=== PATIENT | male | born 1945 | race Caucasian/White ===

== ENCOUNTER 2016-09-11 05:54 | Inpatient (IN) | payer MEDICARE, OTHER ==
--- NOTE | ~2016-09-11 | OR ---
Unit #: [id number] #: [id number] Patient: ANTELMO SAINZ [id number] [address] [address] [id number] I MR#: [id number] NAME: ANTELMO SAINZ ROOM: [facility] Date of Procedure: 09/11/2016 Admission Date: 09/11/2016 Surgeon: Jamil Moon M.D. : 1945 Attending Physician: Jamil Moon M.D. Primary Care Physician: Alicia Farnsworth M.D. 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 PROCEDURES PERFORMED 1. Right total shoulder arthroplasty with posterior augmented glenoid component. 2. Right shoulder biceps tenodesis. IMPLANTS 1. [employer] Simpliciti humeral component, size 2 nucleus with a 48 x 15 head. 2. [employer] Perform+ posterior augmented glenoid, large, 15-degree augment. TALENT SCOUT Demetria Greenwood APRN, CONCRETE GRINDER OPERATOR; OBSERVER Vannesa Edgar APRN. ANESTHESIA General with interscalene nerve block. ESTIMATED BLOOD LOSS 150 mL. DRAINS Medium Hemovac x1. SPECIMENS Humeral head to pathology. INDICATIONS FOR PROCEDURE Mr. Sainz is a 71-year-old gentleman with a longstanding history of right shoulder glenohumeral joint osteoarthritis. We have discussed operative intervention with a total shoulder versus reverse shoulder arthroplasty. The risks, benefits, and alternatives have been outlined and he elects to proceed. Unit #: [id number] #: [id number] Patient: ANTELMO SAINZ DESCRIPTION OF PROCEDURE The patient was identified in the preoperative holding area. The operative site was marked. Preoperative antibiotics were administered. A regional block was performed. The patient was brought to the operating room and placed supine on the operating table. A general anesthetic was induced. The patient was then positioned in the beach-chair position. The right upper extremity was prepped and draped in sterile fashion. A deltopectoral approach was performed. The cephalic vein was taken medially with the pectoralis major muscle. The subdeltoid space was developed. The rotator cuff including supra and infraspinatus tendons as well as subscapularis was intact. The biceps tendon sheath was opened. The biceps was pathologic appearing. An incision was made to proceed with a biceps tenodesis. A #2 FiberWire was used to tenodese the biceps to the superior border of the pectoralis major tendon using a locking Krackow suture. The biceps sheath was then opened all the way up into the rotator interval. The biceps was then incised proximal to the tenodesis and the proximal portion removed. A lesser tuberosity osteotomy was then performed of the subscapularis. The shoulder was then externally rotated and the remaining capsular attachments released. The shoulder was then dislocated anteriorly. A curved osteotome was used to remove osteophytes around the humeral head. There was full-thickness cartilage loss and pitting of the humeral head. The extramedullary cutting guide was then attached. Anatomic head cut was performed at approximately 30 degrees of retroversion. The humerus was then dislocated posteriorly and attention turned to glenoid exposure. A circumferential capsular labral release was performed. We released along the medial or inferior glenoid neck to allow sufficient posterior excursion with access to the glenoid. The axillary nerve was identified by digital palpation in the tug test. This was protected throughout the release. Once we had adequate exposure of the glenoid, this was inspected. This had the classic B2 type pattern with visible tide fermin line where the humeral head was articulating posteriorly. The patient's specific guide was utilized in placing our pin. The Paleo-glenoid was reamed. The posterior reamer was then used according to the standard technique to ream the posterior aspect of the glenoid with a 15-degree reamer. We reamed this to the desired depth and then trialed. We adjusted the reaming as needed to ensure the trial set flush length. Once we had this in the desired location, we then drilled our 3 peripheral peg holes followed by the central peg hole. The glenoid was then prepared for cementing. The real component was opened. The 3 peripheral peg holes were cemented. Bone graft was placed around the flutes of the component which was impacted in place. This achieved a good anatomic fit. This was held in place while the cement was allowed to cure. The humerus was then delivered back into the operative field. We sized to a size 2 nucleus. This was then reamed and punched. We trialed off the trial components, selecting a 48 x 15 mm component. The trials were removed. Four bone tunnels were drilled in the bicipital groove and 4 FiberTape sutures passed for subscap repair. The 3 of the sutures were incorporated through the nucleus implant. The real implant was then impacted in place and the real head assembled. The shoulder was then reduced. This had good 50% posterior pushback and was centered on the glenoid with the arm in neutral rotation. The subscapularis was then repaired with 4 FiberTape sutures as well as a #2 FiberWire in the rotator interval. The wound was irrigated. Unit #: [id number] #: [id number] Patient: ANTELMO SAINZ Drain was placed in the subdeltoid space. The deltopectoral interval was closed with 0 Vicryl followed by 2-0 Vicryl in the subcutaneous tissues and a running Monocryl in the skin. Steri-Strips and sterile dressings were applied. DISPOSITION Stable to the recovery room. Dictated by... Saw Mosley/minor TD: 09/12/2016 00:03 JOB #: [id number] OPERATIVE REPORT X Jamil Moon MD X PROCEDURE OPERATIVE NOTE
--- NOTE | ~2016-09-11 | DS ---
Unit #: [id number] #: [id number] Patient: ANTELMO SAINZ [id number] [address] [place], [place] [address] [id number] MR#: [id number] NAME: ANTELMO SAINZ ROOM: 466 Age: 71 Sex: M Admission Date: 09/11/2016 : 1945 Discharge Date: 09/13/2016 Attending Physician: Jamil Moon M.D. Primary Care Physician: Alicia Farnsworth M.D. DISCHARGE SUMMARY ADMITTING DIAGNOSIS Right glenohumeral joint arthritis. DISCHARGE DIAGNOSIS Right glenohumeral joint arthritis, status post right total shoulder arthroplasty. SECONDARY DIAGNOSIS Include iron deficiency. PROCEDURES On 09/11/2016, the patient underwent a right total shoulder arthroplasty. Please see operative report for further details. BRIEF HISTORY Mr. Sainz is a patient well known to us, whom we have been treating conservatively for right glenohumeral joint arthritis. He has since failed to get any lasting relief from conservative therapies and presented to us requesting to discuss surgical options. We recommended a right total shoulder arthroplasty. The risks, benefits, and alternatives were discussed with the patient and the patient elected to proceed with surgery on 09/13/2016. HOSPITAL COURSE On the day of surgery, the patient was transferred to the orthopedic unit. He remained stable overnight. Took postop x-ray of the right shoulder showed that he was status post right total shoulder arthroplasty. Hardware remain in correct anatomical alignment, no evidence of loosening or migration. On postop #1, the patient's vital signs remained stable. He was awake, alert, and oriented x3, in no acute distress. The patient did have a significant amount of right shoulder pain once the block wore off. His incision was intact, but there was small amount of serosanguineous drainage coming from the incision site. The Hemovac has 40 mL of serosanguineous output overnight. It was felt that the Hemovac likely clotted off overnight. The Hemovac was discontinued in the room. There was no surrounding erythema, warmth, or hematoma around the incision site. He neurovascularly was intact in the median, ulnar, and radial nerves. He had normal sensation and light touch in all 5 digits. His hemoglobin was 10.4 and white blood cell count was 10.2. The patient worked with physical therapy two times and felt comfortable for performing the Unit #: [id number] #: [id number] Patient: ANTELMO SAINZ assigned exercises. He was placed on SCDs and on aspirin for DVT prophylaxis. He remained non-weightbearing of the right upper extremity in a sling. On postop #2, the patient's pain was well controlled. His vital signs remained stable. He is awake, alert, and oriented x3, in no acute distress. His incision was clean, dry, and intact with no surrounding swelling, warmth, or erythema. He was neurovascularly intact in the median, ulnar, and radial nerves. He had normal sensation and light touch in all 5 digits. His hemoglobin was 10.7 and white blood cell count was 12.2. The patient was not complaining of any fevers, chills, cough, or shortness of breath. He was encouraged to continue to assist his incentive spirometer. He remained on SCDs and on aspirin for DVT prophylaxis. His dressing was changed at the bedside today. He remained non-weightbearing of the right upper extremity in a sling. We will plan for discharge home later today. CONDITION AT DISCHARGE Stable. DISPOSITION The patient will be discharged home, where he has family to help with postoperative care. DISCHARGE MEDICATIONS Include ferrous gluconate 65 mg p.o. daily, glucosamine and chondroitin one capsule daily, CoQ10 50 mg daily, multivitamin one tab p.o. b.i.d., aspirin 81 mg p.o. daily, calcium with vitamin D3 tablet one tab p.o. daily, folic acid 400 mcg p.o. daily, vitamin B one tab p.o. daily, domperidone 10 mg p.o. b.i.d., Percocet 5-325 mg 1 to 2 tablets q.4 hours p.r.n., dispense #65. DISCHARGE INSTRUCTIONS AND FOLLOWUP The patient will be discharged home today. He will follow up with me in the office in 2 week's time. He will remain non-weightbearing of the right upper extremity in a sling. He may remove his sling 2 to 3 times per day to perform pendulum and range of motion of the elbow, wrist, and hand. He will perform daily dressing changes to his right upper extremity incision. He is to not get his incision wet. He may shower, but he must keep an occlusive dressing over the incision site. Dictated by... Clif Miller APRN for Saw Mosley/minor TD: 09/15/2016 17:19 JOB #: [id number] Unit #: [id number] #: [id number] Patient: ANTELMO SAINZ DISCHARGE SUMMARY X CLIF MILLER APRN X DISCHARGE SUMMARY
--- NOTE | ~2016-09-11 | CR230 ---
[facility] A Service of [facility] RADIOLOGY TEXT RESULTS PATIENT: ANTELMO FIELD LOCATION: C4B 448-01 : 43 UNIT #: [id number] AGE: [address]: Jamil Moon MD SEX: M ORDER DR: [id number] [facility] [address] [place], [place] [address] [id number] MR#: [id number] Acc #: [id number] NAME: ANTELMO FIELD : 1945 SEX: M STUDY DATE/TIME: 09/11/2016 12:29 UNIT: B ROOM: [facility] STUDY DESCRIPTION: CR Shoulder Min 2 View Rt Attending Physician: Jamil Moon M.D. Ordering Physician: Jamil Moon M.D. Primary Care Physician: Alicia Farnsworth M.D. MEDICAL IMAGING REPORT This report is preliminary unless electronic signature is present EXAM Postop right shoulder series 09/11/2016. HISTORY Postop shoulder arthroplasty. TECHNIQUE 2-view right shoulder series was obtained portably following surgery. FINDINGS Shoulder arthroplasty components appear well positioned following surgery. No visible fracture or dislocation. Extensive soft tissue air in the right upper arm related to surgery. Soft tissue drain in place. IMPRESSION Satisfactory postoperative appearance following right shoulder arthroplasty. Dictated by... Antelmo Chavez M.D. THIS IS AN ELECTRONICALLY VERIFIED REPORT Antelmo Chavez M.D. at 09/11/2016 4:01 PM JUAN FRANCISCO/melissa TD: 09/11/2016 14:20 JOB #: [id number] MEDICAL IMAGING REPORT COPY
[~2016-09-11 05:54] MED LIST: ASPIRIN81 M2 PO; BALANCED B-1001 TA1 PO; CALCIUM + D 6001 TA1 PO; CELECOXIB200 MG PO; CO Q-1050 MG PO; DOMPERIDONE PO; FOLIC ACID PO; GLUCOSAMINE & C1 CAP PO; IRON1 TAB PO; [UNRECOGNIZED DRUG - OTHER] PO
[2016-09-11 06:44] LABS: BASOPHIL# 0.1 X10e3 (0-0.3); BASOPHIL% 1.4 % (0-2.5); EOSINOPHIL# 0.2 X10e3 (0-0.7); EOSINOPHIL% 4.1 % (0.0-7.0); HEMATOCRIT 35.7 % (38.0-50.0); HEMOGLOBIN 12.1 gm/dL (13.0-16.0); LYMPHOCYTE# 1.4 X10e3 (1.0-3.5); MEAN CELL VOLUME 90.5 FL (83-96); MEAN CORPUSCULAR HEMOGLOBIN 30.8 PG (28-34); MEAN PLATELET VOLUME 9.2 FL (6.5-11.5); MONOCYTE# 0.7 X10e3 (0-1.0); MONOCYTE% 13.5 % (3.0-12.0); PLATELET COUNT 205 X10e3 (140-420); RED BLOOD COUNT 3.94 X10e (3.90-5.60); RED CELL DISTRIBUTION WIDTH 13.7 % (11.0-15.5); WHITE BLOOD COUNT 5.5 X10e3 (4.0-10.5)
[2016-09-11 06:48] LABS: DIFF IND NO
[2016-09-11 07:19] LABS: BLOOD UREA NITROGEN 21 mg/dL (9-23); CALCIUM SERUM 9.2 mg/dL (8.4-10.2); CARBON DIOXIDE 28 mmol/L (22-31); CHLORIDE 105 mmol/L (100-111); GLOM FILT RATE Estimated ABOVE60 mL/min (>60); GLUCOSE FASTING 135 mg/dL (70-110); POTASSIUM 3.8 mmol/L (3.5-5.1); SODIUM 139 mmol/L (135-145)
[2016-09-12 02:55] LABS: HEMATOCRIT 30.9 % (38.0-50.0); HEMOGLOBIN 10.4 gm/dL (13.0-16.0); MEAN CELL VOLUME 91.9 FL (83-96); MEAN CORPUSCULAR HGB CONC 33.7 g/dL (30-36); MEAN PLATELET VOLUME 9.4 FL (6.5-11.5); RED BLOOD COUNT 3.36 X10e (3.90-5.60); RED CELL DISTRIBUTION WIDTH 13.5 % (11.0-15.5)
[2016-09-12 02:59] LABS: WHITE BLOOD COUNT 10.2 X10e3 (4.0-10.5)
[2016-09-13 03:37] LABS: BASOPHIL% 0.3 % (0-2.5); EOSINOPHIL% 0.2 % (0.0-7.0); HEMATOCRIT 32.2 % (38.0-50.0); HEMOGLOBIN 10.7 gm/dL (13.0-16.0); LYMPHOCYTE# 0.8 X10e3 (1.0-3.5); LYMPHOCYTE% 6.9 % (17.0-45.0); MEAN CELL VOLUME 91.7 FL (83-96); MEAN CORPUSCULAR HEMOGLOBIN 30.4 PG (28-34); MEAN CORPUSCULAR HGB CONC 33.2 g/dL (30-36); MEAN PLATELET VOLUME 9.6 FL (6.5-11.5); MONOCYTE# 1.5 X10e3 (0-1.0); NEUTROPHIL# 9.8 X10e3 (1.5-7.1); NEUTROPHIL% 80.6 % (40-75); PLATELET COUNT 163 X10e3 (140-420); RED BLOOD COUNT 3.52 X10e (3.90-5.60); RED CELL DISTRIBUTION WIDTH 13.4 % (11.0-15.5); WHITE BLOOD COUNT 12.2 X10e3 (4.0-10.5)
[2016-09-13 03:39] LABS: DIFF IND NO
[2016-09-13] MEDS ORDERED: PERCOCET5/325 PO (10:49)
== END 2016-09-13 18:11 | disposition home or self-care (01) | DRG 483 ==
LOC: CSUR 05:54 → CPACUOF 07:00 → C4B 13:38 → C4C 09-13 12:46
PROVIDERS: Orthopaedic Surgery
PROC: 0LS30ZZ Reposition Right Upper Arm Tendon, Open Approach (ICD-10-PCS; 2016-09-11)
PROC: 0RRJ0JZ Replacement of Right Shoulder Joint with Synthetic Substitute, Open Approach (ICD-10-PCS; principal; 2016-09-11 08:30)
DX: M19.011 Primary osteoarthritis, right shoulder (principal); Z96.1 Presence of intraocular lens; Z98.41 Cataract extraction status, right eye; Z96.651 Presence of right artificial knee joint
CPT/HCPCS: 73030; 80048; 85025; 85027; 97110; 97116; 97161; 97530; C1713; C1776; G8978-GP; G8979-GP; G8980-GP; J0131; J0330; J0690; J0692; J1885; J2250; J2270; J2370; J2405; J2710; J2795; J3010; J3370